=== PATIENT | male | born 1960 | race African-American/Black ===

== ENCOUNTER 2018-04-11 21:03 | Inpatient (IN) | payer MEDICAID ==
[~2018-04-11] VITALS: Ht 180.3 cm; Wt 106.7 kg
[2018-04-11] MEDS ORDERED: SODIUM CHLORIDE 0.9% 1,000 ML IV ONE (21:40)
[2018-04-11] MEDS ORDERED: LEVETIRACETAM 500MG PREMIX 100 ML IV ONE (21:45)
[2018-04-11 21:54] LABS: BASOPHILS % 0.9 % (0.0-2.0); EOSINOPHILS % 0.5 % (0.0-5.0); HEMATOCRIT. 39.5 % (42.0-52.0); HEMOGLOBIN. 13.6 g/dL (14.0-18.0); LYMPHOCYTES % 24.7 % (20.0-50.0); MEAN CORPUSCULAR HEMOGLOBIN 32.4 pg (28.0-32.0); MEAN CORPUSCULAR VOLUME 93.8 fL (80.0-94.0); MEAN PLATELET VOLUME 7.9 fl (7.4-10.4); MONOCYTES % 10.3 % (2.0-8.0); NEUTROPHILS % 63.6 % (40.0-76.0); PLATELET 197 x1000/uL (130-400); RED BLOOD CELL COUNT 4.21 mill/uL (4.7-6.1); RED CELL DISTRIBUTION WIDTH 13.7 % (11.6-14.6)
[2018-04-11 22:00] LABS: CHLORIDE 99 mEq/L (98-107)
[2018-04-11 22:02] LABS: INR 1.1; PARTIAL THROMBOPLASTIN TIME 27.7 sec (23.4-31.0); PROTHROMBIN TIME 11.6 sec (9.4-11.6)
[2018-04-11 22:04] LABS: ETHANOL BLOOD < 10 mg/dL
[2018-04-11 22:09] LABS: CREATINE KINASE MB FRACTION 3.8 ng/mL (0.5-3.6)
[2018-04-11 22:13] LABS: CARBAMAZEPINE < 0.5 ug/mL (4-12); PHENOBARBITAL < 2.1 ug/mL (15.0-40.0)
[2018-04-11] MEDS ORDERED: HYDRALAZINE 20MG/ML VIAL IV ONE (22:15)
[2018-04-11 23:25] LABS: *AMPHETAMINES SCREEN URINE NEGATIVE (NEGATIVE); *BARBITURATES SCREEN URINE NEGATIVE (NEGATIVE); *BENZODIAZEPINES SCREEN URINE NEGATIVE (NEGATIVE)
[2018-04-11 23:26] LABS: *COCAINE SCREEN URINE NEGATIVE (NEGATIVE); CANNABINOID URINE SCREEN NEGATIVE (NEGATIVE); METHADONE URINE SCREEN NEGATIVE (NEGATIVE); OPIATES URINE SCREEN NEGATIVE (NEGATIVE); PHENCYCLIDINE URINE SCREEN NEGATIVE (NEGATIVE)
[2018-04-12] MEDS ORDERED: ASPIRIN 325MG EC TABLET PO ONE (00:30)
[2018-04-12] MEDS ORDERED: CLONIDINE 0.2MG TABLET PO ONE (01:15)
[2018-04-12] MEDS ORDERED: SODIUM CHLORIDE 0.9% 1,000 ML IV SCH (02:54)
[2018-04-12 05:00] VITALS: BP 176/93
[2018-04-12] MEDS ORDERED: CLONIDINE 0.1MG TABLET PO PRN (05:30)
[2018-04-12 06:00] VITALS: BP 176/93
[2018-04-12] MEDS ORDERED: PANTOPRAZOLE 40MG DR TABLET PO SCH (06:45)
[2018-04-12 08:00] VITALS: BP 177/101
[2018-04-12] MEDS ORDERED: AMLODIPINE 5MG TABLET PO SCH (09:00)
[2018-04-12] MEDS ORDERED: ENOXAPARIN 30MG/0.3ML SYR SUBCUT SCH (09:00)
[2018-04-12] MEDS ORDERED: LEVETIRACETAM 500MG TABLET PO SCH (09:00)
[2018-04-12 09:59] LABS: BASOPHILS % 0.6 % (0.0-2.0); EOSINOPHILS % 0.6 % (0.0-5.0); HEMATOCRIT. 38.3 % (42.0-52.0); HEMOGLOBIN. 13.3 g/dL (14.0-18.0); LYMPHOCYTES % 22.9 % (20.0-50.0); MEAN CORPUSCULAR HEMOGLOBIN 32.3 pg (28.0-32.0); MEAN CORPUSCULAR VOLUME 93.2 fL (80.0-94.0); MEAN PLATELET VOLUME 8.2 fl (7.4-10.4); MONOCYTES % 8.8 % (2.0-8.0); NEUTROPHILS % 67.1 % (40.0-76.0); PLATELET 208 x1000/uL (130-400); RED BLOOD CELL COUNT 4.11 mill/uL (4.7-6.1); RED CELL DISTRIBUTION WIDTH 13.9 % (11.6-14.6)
[2018-04-12 10:49] LABS: CHLORIDE 101 mEq/L (98-107)
[2018-04-12 12:00] VITALS: BP 158/96
[2018-04-12 16:16] VITALS: BP 140/104
== END 2018-04-12 18:05 | disposition left against medical advice (07) | DRG 53 ==
LOC: ER 21:26 → 5WST 04-12 02:56 → EDBEDREQTM 04-12 02:57 → EDBEDREQ 04-12 02:57 → ENRESERV 04-12 04:07
PROVIDERS: ADMIT Internal Medicine; ATTEND Internal Medicine
DX: R56.9 Unspecified convulsions (principal); I11.9 Hypertensive heart disease without heart failure; Z53.21 Procedure and treatment not carried out due to patient leaving prior to being seen by health care provider; I44.0 Atrioventricular block, first degree; M79.5 Residual foreign body in soft tissue
CPT/HCPCS: 36415; 70450; 71045; 80053; 80156; 80165; 80184; 80185; 80305; 82553; 82962; 84484; 85025; 85610; 85730; 93005; 96374; 96375; 99285; G0482; J0360; J1650; J1953; J7030

== ENCOUNTER 2018-09-29 01:26 | Emergency (ER) | payer MEDICARE, MEDICAID ==
[~2018-09-29] VITALS: Ht 180.3 cm; Wt 113.0 kg
[~2018-09-29 01:26] MED LIST: AMLO10TA80 PO; HYDR12.54 PO; IBUP-2030 PO; LOSA50TA20 PO
[2018-09-29] MEDS ORDERED: LORAZEPAM 2MG/ML CPJ IV STA (01:35)
[2018-09-29] MEDS ORDERED: ONDANSETRON HCL 4MG/2ML INJ IV STA (01:35)
[2018-09-29] MEDS ORDERED: LORAZEPAM 2MG/ML CPJ ONE (01:39)
[2018-09-29 02:37] LABS: CHLORIDE 96 mEq/L (98-107)
[2018-09-29 02:45] LABS: ETHANOL BLOOD < 10 mg/dL
[2018-09-29] MEDS ORDERED: LACTULOSE 20G/30ML UDC PO SCH ×2 (03:00→14:00)
[2018-09-29 03:29] LABS: BASOPHILS % 0.8 % (0.0-2.0); EOSINOPHILS % 0.2 % (0.0-5.0); HEMATOCRIT. 43.5 % (42.0-52.0); LYMPHOCYTES % 14.8 % (20.0-50.0); MEAN CORPUSCULAR HEMOGLOBIN 32.6 pg (28.0-32.0); MEAN CORPUSCULAR VOLUME 94.4 fL (80.0-94.0); MEAN PLATELET VOLUME 8.2 fl (7.4-10.4); MONOCYTES % 4.9 % (2.0-8.0); NEUTROPHILS % 79.3 % (40.0-76.0); PLATELET 253 x1000/uL (130-400); RED BLOOD CELL COUNT 4.61 mill/uL (4.7-6.1); RED CELL DISTRIBUTION WIDTH 14.3 % (11.6-14.6)
[2018-09-29 03:58] LABS: CLARITY URINE CLEAR (CLEAR); COLOR URINE YELLOW (YELLOW); KETONES URINE TRACE (NEGATIVE); LEUKOCYTE ESTERASE URINE NEGATIVE (NEGATIVE); NITRITE URINE NEGATIVE (NEGATIVE); OCCULT BLOOD URINE TRACE (NEGATIVE); PROTEIN URINE 2+ (NEGATIVE)
[2018-09-29] MEDS ORDERED: LORAZEPAM 2MG/ML CPJ IV ONE (04:00)
[2018-09-29 04:24] LABS: *AMPHETAMINES SCREEN URINE NEGATIVE (NEGATIVE); *BARBITURATES SCREEN URINE NEGATIVE (NEGATIVE); *BENZODIAZEPINES SCREEN URINE NEGATIVE (NEGATIVE); *COCAINE SCREEN URINE NEGATIVE (NEGATIVE); CANNABINOID URINE SCREEN NEGATIVE (NEGATIVE); METHADONE URINE SCREEN NEGATIVE (NEGATIVE); OPIATES URINE SCREEN NEGATIVE (NEGATIVE); PHENCYCLIDINE URINE SCREEN NEGATIVE (NEGATIVE)
[2018-09-29] MEDS ORDERED: CHLORDIAZEPOXIDE 25MG CAPSULE PO SCH (09:30)
[2018-09-29] MEDS ORDERED: LORAZEPAM 2MG/ML CPJ IV PRN ×2 (09:30→13:30)
[2018-09-29 13:24] VITALS: BP 131/90
[2018-09-29] MEDS ORDERED: ONDANSETRON HCL 4MG/2ML INJ IV PRN (13:30)
[2018-09-29] MEDS ORDERED: SODIUM CHLORIDE 0.45% 1,000 ML IV SCH (13:30)
[2018-09-29] MEDS ORDERED: MAGNESIUM/ALUMINUM HYDROXIDE/SIMETHICONE 30ML UDC PO PRN (13:30)
[2018-09-29] MEDS ORDERED: DOCUSATE SODIUM 100MG CAPSULE PO PRN (13:30)
[2018-09-29] MEDS ORDERED: HYDROCODONE/ACETAMINOPHEN 5/325MG TABLET PO PRN (13:30)
[2018-09-29] MEDS ORDERED: ACETAMINOPHEN 325MG TABLET PO PRN (13:30)
[2018-09-29] MEDS ORDERED: IPRATROPIUM/ALBUTEROL 0.5-3(2.5)MG/3ML NEB INH PRN (13:30)
[2018-09-29] MEDS ORDERED: CLONIDINE 0.1MG TABLET PO PRN (13:30)
[2018-09-29] MEDS ORDERED: GUAIFENESIN 200MG/10ML SUGAR FREE UDC PO PRN (13:30)
[2018-09-29] MEDS ORDERED: DIPHENHYDRAMINE 50MG/ML VIAL IV PRN (13:30)
[2018-09-29] MEDS ORDERED: ACETAMINOPHEN 650MG SUPP PR PRN (13:30)
[2018-09-29] MEDS ORDERED: NA PHOS,M-B/NA PHOS,DI-BA ENEMA 118ML PR PRN (13:30)
[2018-09-29] MEDS ORDERED: LEVETIRACETAM 500 MG in SODIUM CHLORIDE 0.9% 100 ML IV SCH (13:30)
== END 2018-09-29 14:39 | disposition left against medical advice (07) ==
LOC: ER 01:26 → SUPCPDRO 12:45 → ER 14:39 → CANBEDREQ 14:41
DX: G40.909 Epilepsy, unspecified, not intractable, without status epilepticus (principal); G93.41 Metabolic encephalopathy; E86.0 Dehydration; I10 Essential (primary) hypertension; E72.20 Disorder of urea cycle metabolism, unspecified; F10.10 Alcohol abuse, uncomplicated; F17.210 Nicotine dependence, cigarettes, uncomplicated; Y90.0 Blood alcohol level of less than 20 mg/100 ml; Z91.19 Patient's noncompliance with other medical treatment and regimen
CPT/HCPCS: 36415; 70450; 80053; 80305; 81003; 82140; 82542; 83036; 85025; 96374; 96375; 96376; 99285; G0482; J2060; J2405

== ENCOUNTER 2019-03-21 16:45 | Emergency (ER) | payer MEDICAID, MEDICARE ==
[~2019-03-21] VITALS: Ht 177.8 cm; Wt 74.0 kg
[2019-03-21] MEDS ORDERED: SODIUM CHLORIDE 0.9% 1,000 ML IV ONE (17:04)
[2019-03-21] MEDS ORDERED: LEVETIRACETAM 500MG PREMIX 100 ML IV ONE (17:15)
[2019-03-21] MEDS ORDERED: LORAZEPAM 2MG/ML CPJ IV ONE (17:15)
[2019-03-21 17:18] LABS: BASOPHILS % 0.6 % (0.0-2.0); HEMATOCRIT. 33.9 % (42.0-52.0); LYMPHOCYTES % 7.6 % (20.0-50.0); MEAN CORPUSCULAR HEMOGLOBIN 28.7 pg (28.0-32.0); MEAN CORPUSCULAR VOLUME 88.7 fL (80.0-94.0); MEAN PLATELET VOLUME 7.8 fl (7.4-10.4); NEUTROPHILS % 88.8 % (40.0-76.0); PLATELET 442 x1000/uL (130-400); RED BLOOD CELL COUNT 3.82 mill/uL (4.7-6.1)
[2019-03-21 17:23] LABS: CHLORIDE 103 mEq/L (98-107)
[2019-03-21 17:28] LABS: ETHANOL BLOOD < 10 mg/dL
[2019-03-21 17:32] LABS: CREATINE KINASE 127 IU/L (39-308)
[2019-03-21 17:38] LABS: CARBAMAZEPINE < 0.5 ug/mL (4-12); PHENOBARBITAL < 2.1 ug/mL (15.0-40.0)
[2019-03-21] MEDS ORDERED: FOLIC ACID 1 MG, THIAMINE HCL 100 MG, MVI, ADULT NO.1 10 ML in DEXTROSE 5% WATER 1,000 ML IV ONE ×4 (20:00)
[2019-03-21 22:41] VITALS: BP 119/83
== END 2019-03-21 22:43 | disposition home or self-care (01) ==
LOC: ER 16:45
DX: G40.909 Epilepsy, unspecified, not intractable, without status epilepticus (principal); E86.0 Dehydration; F10.20 Alcohol dependence, uncomplicated; Y90.9 Presence of alcohol in blood, level not specified
CPT/HCPCS: 36415; 70450; 71045; 80053; 80156; 80165; 80184; 80185; 80320; 82140; 82550; 83690; 84443; 85025; 93005; 96365; 96366; 96367; 96375; 99284; J1953; J2060; J3411; J3490; J7030; J7070; G0480

== ENCOUNTER 2019-04-12 14:54 | Inpatient (IN) | payer MEDICARE ==
[~2019-04-12] VITALS: Ht 167.6 cm; Wt 96.2 kg
[2019-04-12] MEDS ORDERED: ONDANSETRON HCL 4MG/2ML INJ IV STA (15:30)
[2019-04-12] MEDS ORDERED: SODIUM CHLORIDE 0.9% 1,000 ML IV ONE (15:30)
[2019-04-12] MEDS ORDERED: MORPHINE SULFATE 4 MG/ML CPJ (NOT FOR IM USE) IV STA (15:30)
[2019-04-12] MEDS ORDERED: FAMOTIDINE 20MG/2ML VIAL IV STA (15:30)
[2019-04-12 15:55] LABS: BASOPHILS % 0.6 % (0.0-2.0); EOSINOPHILS % 0.4 % (0.0-5.0); HEMATOCRIT. 30.5 % (42.0-52.0); HEMOGLOBIN. 10.2 g/dL (14.0-18.0); LYMPHOCYTES % 17.1 % (20.0-50.0); MEAN CORPUSCULAR HEMOGLOBIN 27.2 pg (28.0-32.0); MEAN CORPUSCULAR VOLUME 81.1 fL (80.0-94.0); MEAN PLATELET VOLUME 8.2 fl (7.4-10.4); MONOCYTES % 8.8 % (2.0-8.0); NEUTROPHILS % 73.1 % (40.0-76.0); PLATELET 416 x1000/uL (130-400); RED BLOOD CELL COUNT 3.76 mill/uL (4.7-6.1); RED CELL DISTRIBUTION WIDTH 17.4 % (11.6-14.6)
[2019-04-12 15:58] LABS: INR 1.2; PROTHROMBIN TIME 11.8 sec (9.6-11.0)
[2019-04-12 16:01] LABS: CHLORIDE 85 mEq/L (98-107)
[2019-04-12 16:05] LABS: ETHANOL BLOOD < 10 mg/dL
[2019-04-12] MEDS ORDERED: KCL 10MEQ/50ML PREMIX 50 ML IV ONE (16:45)
[2019-04-12] MEDS ORDERED: POTASSIUM CHLORIDE 20MEQ TABLET SR PO ONE (16:45)
[2019-04-12 23:01] VITALS: BP 109/62
[2019-04-12] MEDS ORDERED: KEPP500 PO (23:24)
[2019-04-13] VITALS (7 sets, daily range): BP systolic 95–122; BP diastolic 61–80
[2019-04-13] MEDS ORDERED: LEVETIRACETAM 500 MG in SODIUM CHLORIDE 0.9% 100 ML IV SCH (00:15)
[2019-04-13] MEDS ORDERED: NA PHOS,M-B/NA PHOS,DI-BA ENEMA 118ML PR ONE (00:15)
[2019-04-13] MEDS ORDERED: ONDANSETRON HCL 4MG/2ML INJ IV PRN (00:15)
[2019-04-13] MEDS ORDERED: BISACODYL 10MG SUPP PR SCH (00:36)
[2019-04-13] MEDS: DEXT 5%/0.45% NACL KCL 20MEQ/L 1,000 ML IV SCH ×3 (01:39→18:00)
[2019-04-13] MEDS: LEVETIRACETAM 500 MG in SODIUM CHLORIDE 0.9% 100 ML IV SCH ×3 (01:39→21:09)
[2019-04-13] MEDS ORDERED: POTASSIUM CHLORIDE INJ 50 MEQ in DEXT 5% WATER 250 ML IV SCH (02:00)
[2019-04-13 07:34] LABS: BASOPHILS % 0.5 % (0.0-2.0); HEMATOCRIT. 31.5 % (42.0-52.0); HEMOGLOBIN. 10.4 g/dL (14.0-18.0); LYMPHOCYTES % 21.2 % (20.0-50.0); MEAN PLATELET VOLUME 8.9 fl (7.4-10.4); MONOCYTES % 8.9 % (2.0-8.0); NEUTROPHILS % 68.4 % (40.0-76.0); PLATELET 385 x1000/uL (130-400); RED BLOOD CELL COUNT 3.84 mill/uL (4.7-6.1)
[2019-04-13 07:35] LABS: CHLORIDE 87 mEq/L (98-107)
[2019-04-13 08:01] LABS: T4 FREE 1.46 ng/dL (0.76-1.46)
[2019-04-13] MEDS ORDERED: KCL 20MEQ/100ML PREMIX 100 ML IV SCH (09:00)
[2019-04-13] MEDS ORDERED: FAMOTIDINE 20MG/2ML VIAL IV SCH (09:00)
[2019-04-13] MEDS ORDERED: DIATR MEGLU/DIATRIZOATE SOLN 120ML ONE (09:27)
[2019-04-13] MEDS ORDERED: BACTERIOSTATIC SODIUM CHLORIDE 0.9% 30ML VIAL IJ ONE (12:27)
[2019-04-13 13:54] LABS: PROSTRATE SPECIFIC AG TOTAL 2.71 ng/mL (0.0-4.0)
[2019-04-13 14:30] LABS: CARCINO EMBRYONIC ANTIGEN 1742.3 ng/ml
[2019-04-13] MEDS: FAMOTIDINE 20MG/2ML VIAL IV SCH (15:26)
[2019-04-13 18:32] LABS: BG BASE EXCESS 8.6 mmol/L (-2.0-2.0); BG CARBOXYHEMOGLOBIN 2.4 % (0.5-1.5); BG DEOXYHEMOGLOBIN 4.8 % (0.0-5.0); BG FRACTION INSPIRED OXYGEN 21; BG HCO3 ACT 32.3 mmol/L (22.0-26.0); BG METHEMOGLOBIN 0.3 % (0.0-1.5); BG OXYGEN SATURATION 95.1 % (92.0-98.5); BG OXYHEMOGLOBIN 92.5 % (94.0-97.0); BG PCO2 40.9 mmHg (35.0-45.0); BG PH 7.515 (7.350-7.450); BG PO2 75.8 mmHg (75.0-100.0); BG SAMPLE SITE RIGHT BRACHIAL; BG TOTAL HEMOGLOBIN 11.2 g/dL (12.0-18.0); BG VENT MODE ROOM AIR
[2019-04-13] MEDS ORDERED: SIMETHICONE 40 MG/0.6 ML 30ML ONE (18:42)
[2019-04-13] MEDS ORDERED: MIDAZOLAM HCL 5 MG/5 ML VIAL IV PRN (18:58)
[2019-04-13] MEDS ORDERED: FENTANYL CITRATE/PF 50MCG/ML 2ML VIAL ONE (18:58)
[2019-04-13] MEDS ORDERED: MIDAZOLAM HCL 5 MG/5 ML VIAL ONE (18:58)
[2019-04-13] MEDS ORDERED: FENTANYL CITRATE/PF 50MCG/ML 2ML VIAL IV PRN (18:59)
[2019-04-14] VITALS: BP 96/70
[2019-04-14] MEDS: DEXT 5%/0.45% NACL KCL 20MEQ/L 1,000 ML IV SCH ×2 (02:04→09:43)
[2019-04-14 04:34] VITALS: BP 106/73
[2019-04-14 07:25] LABS: BASOPHILS % 0.4 % (0.0-2.0); EOSINOPHILS % 0.8 % (0.0-5.0); HEMATOCRIT. 32.8 % (42.0-52.0); HEMOGLOBIN. 10.8 g/dL (14.0-18.0); MEAN CORPUSCULAR HEMOGLOBIN 26.9 pg (28.0-32.0); MEAN CORPUSCULAR VOLUME 82.2 fL (80.0-94.0); MEAN PLATELET VOLUME 8.9 fl (7.4-10.4); MONOCYTES % 7.8 % (2.0-8.0); PLATELET 398 x1000/uL (130-400); RED CELL DISTRIBUTION WIDTH 17.8 % (11.6-14.6)
[2019-04-14 08:00] VITALS: BP 107/75
[2019-04-14 08:04] LABS: CHLORIDE 94 mEq/L (98-107)
[2019-04-14] MEDS: FAMOTIDINE 20MG/2ML VIAL IV SCH ×2 (09:42→20:27)
[2019-04-14] MEDS: LEVETIRACETAM 500 MG in SODIUM CHLORIDE 0.9% 100 ML IV SCH ×2 (09:42→20:27)
[2019-04-14] MEDS ORDERED: BUPIVACAINE HCL 0.5% (5MG/ML) 50ML ONE (10:51)
[2019-04-14] MEDS ORDERED: KCL 20MEQ/100ML PREMIX 100 ML IV NR (11:30)
[2019-04-14] MEDS ORDERED: MORPHINE SULFATE 2 MG/ML CPJ (NOT FOR IM USE) IV PRN ×2 (12:45→14:45)
[2019-04-14] MEDS ORDERED: ACETAMINOPHEN 650MG SUPP PR PRN (12:45)
[2019-04-14] MEDS ORDERED: ONDANSETRON HCL 4MG/2ML INJ IV PRN ×2 (12:45→14:45)
[2019-04-14] MEDS ORDERED: PHENYLEPHRINE HCL 10 MG/ML 1ML (IV VIAL) IV ONE (12:50)
[2019-04-14] MEDS ORDERED: FENTANYL CITRATE/PF 50MCG/ML 2ML VIAL ONE ×3 (12:50→13:18)
[2019-04-14] MEDS ORDERED: ONDANSETRON HCL 4MG/2ML INJ ONE (12:50)
[2019-04-14] MEDS ORDERED: EPHEDRINE SULFATE 50MG/ML VIAL ONE (12:50)
[2019-04-14] MEDS ORDERED: METOCLOPRAMIDE HCL 10MG/2ML VIAL ONE (12:50)
[2019-04-14] MEDS ORDERED: PROPOFOL 200MG/20ML VIAL IV ONE (12:50)
[2019-04-14] MEDS ORDERED: SUCCINYLCHOLINE CHLORIDE 200MG/10ML IV ONE (12:50)
[2019-04-14] MEDS ORDERED: NEOSTIGMINE METHYLSULFATE 1MG/ML 10 ML VIAL ONE (12:50)
[2019-04-14] MEDS ORDERED: MIDAZOLAM HCL 2 MG/2 ML VIAL ONE (12:50)
[2019-04-14] MEDS ORDERED: CEFAZOLIN SODIUM 1000MG/VIAL ONE (12:50)
[2019-04-14] MEDS ORDERED: ROCURONIUM BROMIDE 10MG/ML VIAL 5ML IV ONE (12:50)
[2019-04-14] MEDS ORDERED: GLYCOPYRROLATE 0.2 MG/ML 2ML VIAL ONE (12:50)
[2019-04-14] MEDS ORDERED: SODIUM CHLORIDE 0.9% 10ML VIAL ONE (12:50)
[2019-04-14] MEDS ORDERED: LEVOFLOXACIN 500MG PREMIX 100 ML IV SCH (14:00)
[2019-04-14] MEDS ORDERED: SODIUM CHLORIDE 0.9% 1,000 ML IV ONE (14:45)
[2019-04-14] MEDS ORDERED: HYDROMORPHONE HCL/PF 2MG/ML CPJ IV PRN (14:45)
[2019-04-14] MEDS ORDERED: HYDROMORPHONE PCA 10MG/50ML IV PRN (15:00)
[2019-04-14] MEDS ORDERED: BUPIVACAINE HCL 0.5% 290 ML in ON-Q PM015 DRUG DELIV DEVICE 1 EA IR SCH (15:00)
[2019-04-14] MEDS ORDERED: ONDANSETRON INJ IV PRN (15:00)
[2019-04-14] MEDS ORDERED: DIPHENHYDRAMINE INJ IV PRN (15:00)
[2019-04-14] MEDS ORDERED: NALOXONE INJ IV PRN (15:00)
[2019-04-14 17:10] VITALS: BP 134/86
[2019-04-14] MEDS: METRONIDAZOLE 500 MG PREMIX 100 ML IV SCH ×2 (17:29→21:36)
[2019-04-14 17:32] LABS: HEMATOCRIT 34.4 % (42.0-52.0); HEMOGLOBIN 11.3 g/dL (14.0-18.0); MEAN CORPUSCULAR HEMOGLOBIN 27.1 pg (28.0-32.0); MEAN CORPUSCULAR VOLUME 82.6 fL (80.0-94.0); PLATELET 379 x1000/uL (130-400); RED BLOOD CELL COUNT 4.16 mill/uL (4.7-6.1); RED CELL DISTRIBUTION WIDTH 17.8 % (11.6-14.6)
[2019-04-14 17:48] LABS: CHLORIDE 101 mEq/L (98-107)
[2019-04-14] MEDS ORDERED: POTASSIUM CHLORIDE INJ 40 MEQ in DEXT 5% WATER 250 ML IV NR (20:00)
[2019-04-14 20:15] VITALS: BP 114/77
[2019-04-15 00:10] VITALS: BP 109/76
[2019-04-15] MEDS: DEXT 5%/0.45% NACL KCL 20MEQ/L 1,000 ML IV SCH ×4 (03:07→21:57)
[2019-04-15 04:00] VITALS: BP 110/76
[2019-04-15] MEDS: METRONIDAZOLE 500 MG PREMIX 100 ML IV SCH (06:04)
[2019-04-15 06:21] LABS: BASOPHILS % 0.2 % (0.0-2.0); EOSINOPHILS % 0.2 % (0.0-5.0); HEMATOCRIT. 29.6 % (42.0-52.0); HEMOGLOBIN. 9.7 g/dL (14.0-18.0); LYMPHOCYTES % 8.1 % (20.0-50.0); MEAN CORPUSCULAR VOLUME 82.6 fL (80.0-94.0); MEAN PLATELET VOLUME 8.6 fl (7.4-10.4); MONOCYTES % 5.4 % (2.0-8.0); NEUTROPHILS % 86.1 % (40.0-76.0); PLATELET 347 x1000/uL (130-400); RED BLOOD CELL COUNT 3.58 mill/uL (4.7-6.1); RED CELL DISTRIBUTION WIDTH 17.7 % (11.6-14.6)
[2019-04-15 07:15] LABS: CHLORIDE 102 mEq/L (98-107)
[2019-04-15 08:14] VITALS: BP 121/82
[2019-04-15] MEDS: LEVETIRACETAM 500 MG in SODIUM CHLORIDE 0.9% 100 ML IV SCH ×2 (09:22→21:59)
[2019-04-15] MEDS: FAMOTIDINE 20MG/2ML VIAL IV SCH ×2 (09:23→21:59)
[2019-04-15 12:03] VITALS: BP 132/89
[2019-04-15 15:19] VITALS: BP 123/87
[2019-04-15 19:55] VITALS: BP 135/90
[2019-04-15] MEDS ORDERED: POTASSIUM CHLORIDE INJ 40 MEQ in DEXT 5% WATER 250 ML IV NR (20:30)
[2019-04-16 00:07] VITALS: BP 104/73
[2019-04-16 04:00] VITALS: BP 133/85
[2019-04-16 07:03] LABS: BASOPHILS % 0.3 % (0.0-2.0); EOSINOPHILS % 0.1 % (0.0-5.0); HEMATOCRIT. 29.4 % (42.0-52.0); HEMOGLOBIN. 9.7 g/dL (14.0-18.0); LYMPHOCYTES % 7.4 % (20.0-50.0); MEAN CORPUSCULAR HEMOGLOBIN 26.9 pg (28.0-32.0); MEAN CORPUSCULAR VOLUME 81.8 fL (80.0-94.0); MEAN PLATELET VOLUME 8.7 fl (7.4-10.4); MONOCYTES % 7.3 % (2.0-8.0); NEUTROPHILS % 84.9 % (40.0-76.0); PLATELET 310 x1000/uL (130-400); RED BLOOD CELL COUNT 3.59 mill/uL (4.7-6.1); RED CELL DISTRIBUTION WIDTH 17.7 % (11.6-14.6)
[2019-04-16 08:00] VITALS: BP 100/69
[2019-04-16 08:04] LABS: CHLORIDE 106 mEq/L (98-107)
[2019-04-16] MEDS: FAMOTIDINE 20MG/2ML VIAL IV SCH ×2 (08:58→22:14)
[2019-04-16] MEDS: LEVETIRACETAM 500 MG in SODIUM CHLORIDE 0.9% 100 ML IV SCH ×2 (08:58→22:14)
[2019-04-16 12:00] VITALS: BP 116/80
[2019-04-16] MEDS ORDERED: SODIUM CHLORIDE 0.9% 500 ML IV ONE (13:15)
[2019-04-16 16:00] VITALS: BP 115/80
[2019-04-16] MEDS ORDERED: IPRATROPIUM/ALBUTEROL 0.5-3(2.5)MG/3ML NEB HHN PRN (18:00)
[2019-04-16] MEDS ORDERED: SODIUM CHLORIDE 0.9% 500 ML IV SCH (18:00)
[2019-04-16] MEDS ORDERED: ACETYLCYSTEINE 100MG/ML 10% VIAL 4ML INH SCH (18:00)
[2019-04-16 20:00] VITALS: BP 115/78
[2019-04-16] MEDS: IPRATROPIUM/ALBUTEROL 0.5-3(2.5)MG/3ML NEB HHN SCH (20:39)
[2019-04-16] MEDS: DEXT 5%/0.45% NACL KCL 20MEQ/L 1,000 ML IV SCH ×2 (22:14→22:15)
[2019-04-17] VITALS: BP 112/68
[2019-04-17] MEDS: IPRATROPIUM/ALBUTEROL 0.5-3(2.5)MG/3ML NEB HHN SCH ×4 (01:45→20:05)
[2019-04-17] MEDS: DEXT 5%/0.45% NACL KCL 20MEQ/L 1,000 ML IV SCH ×3 (02:00→21:02)
[2019-04-17 04:00] VITALS: BP 115/74
[2019-04-17 07:05] LABS: HEMATOCRIT 26.3 % (42.0-52.0); HEMOGLOBIN 8.8 g/dL (14.0-18.0); MEAN CORPUSCULAR VOLUME 80.9 fL (80.0-94.0); PLATELET 255 x1000/uL (130-400); RED BLOOD CELL COUNT 3.26 mill/uL (4.7-6.1); RED CELL DISTRIBUTION WIDTH 17.6 % (11.6-14.6)
[2019-04-17 07:16] LABS: CHLORIDE 109 mEq/L (98-107)
[2019-04-17 08:00] VITALS: BP 102/72
[2019-04-17] MEDS: LEVETIRACETAM 500 MG in SODIUM CHLORIDE 0.9% 100 ML IV SCH ×2 (09:42→20:46)
[2019-04-17] MEDS: FAMOTIDINE 20MG/2ML VIAL IV SCH ×2 (09:42→20:46)
[2019-04-17 11:46] VITALS: BP 128/82
[2019-04-17 15:39] VITALS: BP 118/81
[2019-04-17] MEDS ORDERED: MORPHINE SULFATE 2 MG/ML CPJ (NOT FOR IM USE) IV PRN (15:45)
[2019-04-17] MEDS: LEVOFLOXACIN 500MG PREMIX 100 ML IV SCH (17:51)
[2019-04-17 20:00] VITALS: BP 126/86
[2019-04-18] VITALS: BP 124/80
[2019-04-18] MEDS: IPRATROPIUM/ALBUTEROL 0.5-3(2.5)MG/3ML NEB HHN SCH ×4 (02:18→21:05)
[2019-04-18 04:00] VITALS: BP_SYST 125; BP_SYST 132; BP_DIAS 81; BP_DIAS 84
[2019-04-18 07:11] LABS: HEMATOCRIT 24.1 % (42.0-52.0); HEMOGLOBIN 8.2 g/dL (14.0-18.0); MEAN CORPUSCULAR HEMOGLOBIN 26.9 pg (28.0-32.0); MEAN CORPUSCULAR VOLUME 79.7 fL (80.0-94.0); PLATELET 259 x1000/uL (130-400); RED BLOOD CELL COUNT 3.03 mill/uL (4.7-6.1); RED CELL DISTRIBUTION WIDTH 17.5 % (11.6-14.6)
[2019-04-18 07:16] LABS: CHLORIDE 109 mEq/L (98-107)
[2019-04-18 08:30] VITALS: BP 124/91
[2019-04-18] MEDS: LEVETIRACETAM 500 MG in SODIUM CHLORIDE 0.9% 100 ML IV SCH ×2 (09:35→21:18)
[2019-04-18] MEDS: FAMOTIDINE 20MG/2ML VIAL IV SCH ×2 (09:35→21:18)
[2019-04-18] MEDS: DEXT 5%/0.45% NACL KCL 20MEQ/L 1,000 ML IV SCH ×3 (09:40→18:00)
[2019-04-18 12:00] VITALS: BP 132/86
[2019-04-18] MEDS ORDERED: POTASSIUM CHLORIDE INJ 40 MEQ in DEXT 5% WATER 250 ML IV SCH (15:00)
[2019-04-18 16:00] VITALS: BP 126/80
[2019-04-18] MEDS: LEVOFLOXACIN 500MG PREMIX 100 ML IV SCH (17:50)
[2019-04-18 19:56] VITALS: BP 128/79
[2019-04-19] VITALS: BP 126/79
[2019-04-19] MEDS: DEXT 5%/0.45% NACL KCL 20MEQ/L 1,000 ML IV SCH ×2 (01:48→13:29)
[2019-04-19 04:00] VITALS: BP 127/82
[2019-04-19 07:02] LABS: BASOPHILS % 0.5 % (0.0-2.0); EOSINOPHILS % 2.9 % (0.0-5.0); HEMATOCRIT. 25.5 % (42.0-52.0); HEMOGLOBIN. 8.2 g/dL (14.0-18.0); MEAN PLATELET VOLUME 8.3 fl (7.4-10.4); MONOCYTES % 10.9 % (2.0-8.0); NEUTROPHILS % 69.7 % (40.0-76.0); PLATELET 251 x1000/uL (130-400); RED BLOOD CELL COUNT 3.14 mill/uL (4.7-6.1)
[2019-04-19 07:18] LABS: CHLORIDE 109 mEq/L (98-107)
[2019-04-19] MEDS: IPRATROPIUM/ALBUTEROL 0.5-3(2.5)MG/3ML NEB HHN SCH ×3 (07:51→14:48)
[2019-04-19 08:00] VITALS: BP 110/81
[2019-04-19] MEDS: LEVETIRACETAM 500 MG in SODIUM CHLORIDE 0.9% 100 ML IV SCH (09:21)
[2019-04-19] MEDS: FAMOTIDINE 20MG/2ML VIAL IV SCH (09:21)
[2019-04-19 12:00] VITALS: BP 120/81
[2019-04-19] MEDS ORDERED: MORPHINE SULFATE 2 MG/ML CPJ (NOT FOR IM USE) IV PRN (15:00)
[2019-04-19 16:00] VITALS: BP 124/84
[2019-04-19 16:21] VITALS: BP 110/81
[2019-04-19] MEDS ORDERED: LEVETIRACETAM 500MG/5ML CUP JT SCH (21:00)
[2019-04-20] MEDS ORDERED: LEVOFLOXACIN 500MG TABLET JT SCH (15:00)
== END 2019-04-19 19:00 | DRG 220 ==
LOC: ER 14:54 → 6WST 20:15 → ENRESERV 20:56 → 6WST 04-13 21:56
PROVIDERS: ADMIT Internal Medicine; ATTEND Internal Medicine
PROC: 0DB68ZX Excision of Stomach, Via Natural or Artificial Opening Endoscopic, Diagnostic (ICD-10-PCS; principal; 2019-04-13)
PROC: 0D968ZZ Drainage of Stomach, Via Natural or Artificial Opening Endoscopic (ICD-10-PCS; 2019-04-13)
PROC: 0D160ZA Bypass Stomach to Jejunum, Open Approach (ICD-10-PCS; 2019-04-14)
PROC: 0DB60ZZ Excision of Stomach, Open Approach (ICD-10-PCS; 2019-04-14)
DX: C16.9 Malignant neoplasm of stomach, unspecified (principal); N17.0 Acute kidney failure with tubular necrosis; C78.7 Secondary malignant neoplasm of liver and intrahepatic bile duct; E86.0 Dehydration; K31.1 Adult hypertrophic pyloric stenosis; E87.6 Hypokalemia; F17.210 Nicotine dependence, cigarettes, uncomplicated; G40.909 Epilepsy, unspecified, not intractable, without status epilepticus; K57.30 Diverticulosis of large intestine without perforation or abscess without bleeding; K80.20 Calculus of gallbladder without cholecystitis without obstruction; J45.909 Unspecified asthma, uncomplicated; N40.0 Benign prostatic hyperplasia without lower urinary tract symptoms; I10 Essential (primary) hypertension; D64.9 Anemia, unspecified; K56.7 Ileus, unspecified; K56.41 Fecal impaction; Z85.028 Personal history of other malignant neoplasm of stomach; Z79.899 Other long term (current) drug therapy
CPT/HCPCS: 36415; 36600; 71045; 71250; 74176; 74270; 76705; 80048; 80320; 82375; 82378; 82805; 83735; 84132; 84153; 84439; 84443; 84484; 85027; 86850; 86900; 88305; 88309; 88312; 88313; 93005; 93306; 94640; 96361; 96374; 96375; 97116; 97162; 99152; 99285; C1758; C1893; J0330; J0690; J1170; J1953; J1956; J2250; J2270; J2370; J2405; J2704; J2710; J2765; J3010; J3480; J3490; J7030; J7040; J7050; J7060; J7608; J7620; Q9963; G0103; G0480; G0500